=== PATIENT | male | born 1955 | race Caucasian/White ===

== ENCOUNTER 2018-11-29 12:44 | Emergency (ER) | payer BC, OTHER ==
[2018-11-29] MEDS: ERYTHROMYCIN 1 GM OPH OINT LEFT EYE (15:17)
== END 2018-11-29 15:37 | disposition home or self-care (01) ==
LOC: FTE 15:37
DX: H00.025 Hordeolum internum left lower eyelid (principal)
CPT/HCPCS: 99283; Z7610